=== PATIENT | male | born 1975 | race Caucasian/White ===

== ENCOUNTER 2017-01-29 19:13 | Emergency (ER) | payer BC ==
[~2017-01-29] VITALS: Ht 172.7 cm; Wt 82.0 kg
[2017-01-29] MEDS ORDERED: [UNRECOGNIZED DRUG - REMARK] (19:30)
== END 2017-01-29 21:11 ==
LOC: EDMED 19:13
DX: M54.6 Pain in thoracic spine (principal); G43.909 Migraine, unspecified, not intractable, without status migrainosus; Z88.0 Allergy status to penicillin; V49.60XA Unspecified car occupant injured in collision with unspecified motor vehicles in traffic accident, initial encounter; Y92.410 Unspecified street and highway as the place of occurrence of the external cause